=== PATIENT | female | born 1965 | race Two or more races ===

== ENCOUNTER 2022-12-17 14:35 | Emergency (ER) | payer BC ==
[~2022-12-17] VITALS: Ht 142.2 cm; Wt 72.6 kg
[2022-12-17 15:22] VITALS: BP 117/77; PULSE 95; RESP 18; O2SAT 95
[2022-12-17] MEDS ORDERED: ACETAMINOPHEN 500 MG TAB PO ONE (15:30)
[2022-12-17] MEDS ORDERED: cefTRIAXone SOD 1,000 MG VL IM ONE (15:45)
[2022-12-17 15:46] VITALS: TEMP 100.4
[2022-12-17] MEDS ORDERED: ACET-1080 PO (15:50)
[2022-12-17] MEDS ORDERED: PROM1SOL4 PO (15:50)
[2022-12-17] MEDS ORDERED: AZIT500T66 PO (15:50)
== END 2022-12-17 16:02 | disposition home or self-care (01) ==
LOC: ER 14:35
DX: U07.1 COVID-19 (principal); J03.90 Acute tonsillitis, unspecified
CPT/HCPCS: 71045; 96372; 99283; J0696

== ENCOUNTER 2023-10-30 12:21 | Emergency (ER) | payer BC, MEDICAID ==
[~2023-10-30] VITALS: Ht 142.2 cm; Wt 71.5 kg
[~2023-10-30 12:21] MED LIST: ACET-1080 PO; AZIT500T66 PO; PROM1SOL4 PO
[2023-10-30 13:45] VITALS: BP 128/86; PULSE 68; RESP 16; TEMP 97.9; O2SAT 68
[2023-10-30] MEDS ORDERED: PRED20TA2 PO (14:39)
[2023-10-30] MEDS ORDERED: METH-1182 PO (14:39)
== END 2023-10-30 14:50 | disposition home or self-care (01) ==
LOC: ER 12:29
DX: M25.561 Pain in right knee (principal); G89.29 Other chronic pain; M54.59 Other low back pain; M54.31 Sciatica, right side; Z90.49 Acquired absence of other specified parts of digestive tract; Z79.52 Long term (current) use of systemic steroids; Z79.1 Long term (current) use of non-steroidal anti-inflammatories (NSAID); Z79.899 Other long term (current) drug therapy
CPT/HCPCS: 73562; 93971